=== PATIENT | female | born 1960 | race Caucasian/White ===

== ENCOUNTER 2021-02-17 06:16 | Day surgery (SDC) | payer OTHER ==
[~2021-02-17 06:16] MED LIST: ANASTROZOLE
== END 2021-02-17 21:35 | disposition home or self-care (01) ==
LOC: CIR.AMB 06:16
PROVIDERS: ATTEND Surgery
DX: D05.11 Intraductal carcinoma in situ of right breast (principal); N62 Hypertrophy of breast; Z15.01 Genetic susceptibility to malignant neoplasm of breast; Z41.1 Encounter for cosmetic surgery; Z90.13 Acquired absence of bilateral breasts and nipples; Z20.822 Contact with and (suspected) exposure to COVID-19
CPT/HCPCS: 19357; 19303; 38525; 38792; 15771; 15772; C1789

== ENCOUNTER 2021-06-30 06:02 | Day surgery (SDC) | payer OTHER | END 2021-06-30 13:15 | disposition home or self-care (01) | LOC: CIR.AMB 06:02 | PROVIDERS: ATTEND Plastic Surgery | DX: Z90.13 Acquired absence of bilateral breasts and nipples (principal) | CPT/HCPCS: 19342; C1789 ==

== ENCOUNTER 2022-08-29 16:16 | Inpatient (IN) | payer OTHER ==
[~2022-08-29] VITALS: Ht 162.6 cm; Wt 56.2 kg
[2022-09-04] MEDS ORDERED: IBU800 MG PO (07:21)
== END 2022-09-04 09:46 | disposition home or self-care (01) | DRG 743 ==
LOC: O/R 09-03 08:00 → SURH 09-03 11:15 → OB/GYN 09-03 18:20
PROVIDERS: ADMIT Obstetrics & Gynecology Gynecology; ATTEND Obstetrics & Gynecology Gynecology
PROC: 0UT74ZZ Resection of Bilateral Fallopian Tubes, Percutaneous Endoscopic Approach (ICD-10-PCS; 2022-09-03)
PROC: 0UT24ZZ Resection of Bilateral Ovaries, Percutaneous Endoscopic Approach (ICD-10-PCS; 2022-09-03)
PROC: 0JQC0ZZ Repair Pelvic Region Subcutaneous Tissue and Fascia, Open Approach (ICD-10-PCS; 2022-09-03)
PROC: 0UT94ZZ Resection of Uterus, Percutaneous Endoscopic Approach (ICD-10-PCS; principal; 2022-09-03 12:00)
DX: N80.03 Adenomyosis of the uterus (principal); N81.11 Cystocele, midline; Z20.822 Contact with and (suspected) exposure to COVID-19